=== PATIENT | male | born 1955 | race Caucasian/White ===

== ENCOUNTER → 2016-12-12 | Outpatient (CLI) | payer BC ==
[~2016-12-12] MED LIST: CIPR-255 PO; DICY10CA55 PO; DOXA2TAB PO; GABA1CAP5 PO; LOVA20TA4 PO; MOME200A INH; MONT1TAB3 PO; NSNN50 NAE; OMEP40CA41 PO
--- NOTE | 2016-12-12 13:01 | DIAGNOSTIC IMAGING REPORT ---
TWO VIEW CHEST CLINICAL HISTORY: Cough. FINDINGS: PA and lateral chest radiographs are compared to study dated 02/26/2014. Correlation is made with chest CT dated 04/16/2012. The heart is top normal for projection. The mediastinal contour is within normal limits. The lungs and pleural spaces are clear. There is no pneumothorax. Chronic posttraumatic change is identified in the right upper ribs. IMPRESSION: No active disease in the chest. Electronically signed by: Felix Knight M.D. 12/12/2016 12:59 PM Dictated Date/Time: 12/12/2016 12:58 PM
== END | disposition home or self-care (01) ==
LOC: C.RAD1850 11:23
PROVIDERS: ATTEND Allergy & Immunology Allergy
DX: R05 Cough (principal)

== ENCOUNTER → 2017-01-24 | Day surgery (SDC) | payer BC ==
[2017-01-10 08:21] VITALS: Ht 193 cm; Wt 98.6 kg
[~2017-01-24] VITALS: Ht 193 cm; Wt 98.6 kg
[~2017-01-24] MED LIST changes: +BUPIVACAINE 0.25% 2.5MG/ML PF 10 ML VIAL INFIL ONE; -CIPR-255 PO; +LIDOCAINE HCL 1% MPF 5 ML VIAL ONE
--- NOTE | 2017-01-24 14:22 | History & Physical Bridge - [place] ---
H&P Re-Evaluation Bridge Note: I have examined the patient, reviewed the History & Physical and in the interval since the performance of the History & Physical I have noted the following changes of clinical significance: No changes noted
[2017-01-24 14:45] VITALS: TEMP 37.4
--- NOTE | 2017-01-24 14:51 | Discharge Instructions ---
Discharge Instructions Date of Service Jan 24, 2017. Visit Reason for Visit: Low Back Pain Discharge Discharge Diagnosis / Problem: low back infection Discharge Goals Goal(s): Decrease discomfort, Improve function Medications Stopped Medications Name(s): no blood thinners Activity Recommendations Activity Limitations: resume your previous activity Anesthesia . Post Anesthesia Instructions: If you have had General Anesthesia or IV Sedation: * Do not drive today. * Resume driving when surgeon permits. * Do not make important decisions or sign legal documents today. * Call surgeon for: 1. Temperature elevations greater than 101 degrees F. 2. Uncontrollable pain. 3. Excessive bleeding. 4. Persistent nausea and vomiting. 5. Medication intolerance (nausea, vomiting or rash). * For nausea and vomiting use only clear liquids such as: tea, soda, bouillon until nausea subsides, then gradually increase diet as tolerated. * If you have any concerns or questions, call your surgeon's office. If physician is unavailable and it is an emergency, call 911 or go to the nearest emergency room. . Diet Recommendations Recommended Home Diet: resume previous diet Procedures Procedures Performed: LEFT L5-S1 MEDIAL BRANCH BLOCK Pending Studies Studies pending at discharge: no Medical Emergencies . Who to Call and When: Medical Emergencies: If at any time you feel your situation is an emergency, please call 911 immediately. . Non-Emergent Contact Non-Emergency issues call your: Specialist . . "Provider Documentation" section prepared by Gary Castellon.
[2017-01-24 14:58] VITALS: BP 137/90; PULSE 76; O2SAT 96
--- NOTE | 2017-01-24 15:40 | OPERATIVE REPORT ---
DATE OF OPERATION: 01/24/2017 PREOPERATIVE DIAGNOSES: Left L5-S1 facet arthropathy, history of an L4-L5 diskectomy and laminectomy. POSTOPERATIVE DIAGNOSES: Same. PROCEDURE: Left L5-S1 medial branch block. INDICATIONS: The patient is a 61-year-old white male who presents today with a 3-month history of low back pain. He had a history of a prior disk surgery and laminectomy at L4-L5. He has really localizing pain to the left L5-S1 facet area. His examination was consistent with this and imaging studies also confirmed significant facet arthritis in this area. He presents today for medial branch blocks to confirm that this is indeed causing the pain that he has radiating down into the back and into top of the buttocks. PHYSICAL EXAMINATION: Pleasant male seated comfortably. He has point tenderness to palpation of the left L5-S1 facet area. This is worse with extension, extension rotation. He has normal motor and sensory examination. CONSENT: Verbal and written consent was obtained from the patient. Risks and benefits were reviewed. Risks include but are not limited to infection, abscess and allergic reaction and wishes to proceed. DESCRIPTION OF PROCEDURE: The patient was taken back to the special procedures room of the [facility], where he was maintained in a prone position. Backside was cleansed with Betadine x3 and a dry sterile dressing was applied. Fluoroscope was used to identify the L5 transverse process and the sacral ala both on the left side. The overlying skin was anesthetized with 2.5 mL of lidocaine 1% with a 25-gauge 1.5-inch needle and a 25-gauge 3.5-inch spinal needle was then placed at each site contacting bony target under fluoroscopic guidance. It was then injected with 1 mL of bupivacaine 0.25% first at the L5 transverse process junction and then at the left sacral ala, both injections were done on the left side, well tolerated. DISPOSITION: 1. The patient is taken out into the discharge recovery area where he will be discharged home once discharge criteria have been met. 2. Follow up in the [facility] office in 2-4 weeks. I attest to the content of the Intraoperative Record and any orders documented therein. Any exceptio ns are noted below.
== END | disposition home or self-care (01) ==
LOC: X.SURG 13:22
PROVIDERS: ATTEND Physical Medicine & Rehabilitation
DX: M47.817 Spondylosis without myelopathy or radiculopathy, lumbosacral region (principal); J45.909 Unspecified asthma, uncomplicated; E78.5 Hyperlipidemia, unspecified; I10 Essential (primary) hypertension; K21.9 Gastro-esophageal reflux disease without esophagitis

== ENCOUNTER → 2017-02-15 | Outpatient (CLI) | payer BC ==
[~2017-02-15] MED LIST changes: -BUPIVACAINE 0.25% 2.5MG/ML PF 10 ML VIAL INFIL ONE; -LIDOCAINE HCL 1% MPF 5 ML VIAL ONE; +OPTIRAY 320 IV PRN
--- NOTE | 2017-02-15 08:06 | DIAGNOSTIC IMAGING REPORT ---
ABDOMEN AND PELVIS CT WITH IV AND ORAL CONTRAST CT DOSE: 978.34 mGycm HISTORY: Diverticulosis. Pain. TECHNIQUE: Multiaxial CT images of the abdomen and pelvis were performed following the use of intravenous and oral contrast. COMPARISON STUDY: 03/29/2016 FINDINGS: Several small hepatic cysts unchanged from the prior study. Gallbladder is negative for distention. Spleen is uniform. Pancreas is unremarkable throughout. There kidneys negative for hydronephrosis. Adrenal glands are normal. Abdominal bowel pattern is nonobstructive. There are findings of chronic distal descending and sigmoid colonic diverticulosis. There is no evidence for acute diverticulitis. Bladder is midline. There is no significant abdominal pelvic or inguinal adenopathy. IMPRESSION: 1. Chronic distal descending and sigmoid colonic diverticulosis.. 2. No evidence for acute diverticulitis. 3. Several small stable hepatic cysts. 4. No change in the prior study. Electronically signed by: Vance Brown M.D. 02/15/2017 8:04 AM Dictated Date/Time: 02/15/2017 7:58 AM
== END | disposition home or self-care (01) ==
LOC: C.CTS 06:59
PROVIDERS: ATTEND Internal Medicine Gastroenterology
DX: K57.92 Diverticulitis of intestine, part unspecified, without perforation or abscess without bleeding (principal); K76.89 Other specified diseases of liver

== ENCOUNTER → 2017-03-15 | Day surgery (SDC) | payer BC ==
[~2017-03-15] VITALS: Ht 193 cm; Wt 96.3 kg
[~2017-03-15] MED LIST changes: +BUPIVACAINE 0.25% 2.5MG/ML PF 10 ML VIAL INFIL ONE; +LIDOCAINE HCL 1% MPF 5 ML VIAL ONE; -OPTIRAY 320 IV PRN
[2017-03-15 11:32] VITALS: Ht 193 cm; Wt 96.3 kg
[2017-03-15 12:45] VITALS: TEMP 37.1
--- NOTE | 2017-03-15 12:50 | Discharge Instructions ---
Discharge Instructions Date of Service March 15, 2017. Visit Reason for Visit: Low Back Pain Discharge Discharge Diagnosis / Problem: low back pain Discharge Goals Goal(s): Decrease discomfort, Improve function Activity Recommendations Activity Limitations: resume your previous activity Anesthesia . Post Anesthesia Instructions: If you have had General Anesthesia or IV Sedation: * Do not drive today. * Resume driving when surgeon permits. * Do not make important decisions or sign legal documents today. * Call surgeon for: 1. Temperature elevations greater than 101 degrees F. 2. Uncontrollable pain. 3. Excessive bleeding. 4. Persistent nausea and vomiting. 5. Medication intolerance (nausea, vomiting or rash). * For nausea and vomiting use only clear liquids such as: tea, soda, bouillon until nausea subsides, then gradually increase diet as tolerated. * If you have any concerns or questions, call your surgeon's office. If physician is unavailable and it is an emergency, call 911 or go to the nearest emergency room. . Diet Recommendations Recommended Home Diet: resume previous diet Procedures Procedures Performed: Left L5-S1 Medial Branch Blocks Pending Studies Studies pending at discharge: no Medical Emergencies . Who to Call and When: Medical Emergencies: If at any time you feel your situation is an emergency, please call 911 immediately. . Non-Emergent Contact Non-Emergency issues call your: Specialist . . "Provider Documentation" section prepared by Gary Castellon. .
[2017-03-15 12:59] VITALS: BP 144/89; PULSE 74; O2SAT 95
--- NOTE | 2017-03-15 16:11 | OPERATIVE REPORT ---
DATE OF OPERATION: 03/15/2017 PREOPERATIVE DIAGNOSIS: Left L5-S1 facet arthritis. POSTOPERATIVE DIAGNOSIS: Same. PROCEDURE: Left L5-S1 medial branch block. INDICATIONS: The patient is a 61-year-old white male who had a left L5-S1 branch block that was successful for the exact time of the bupivacaine 8 hours. His pain recurred. He presents today for a second branch block to confirm that indeed the facet is the pain generator of this chronic low back pain for a second medial branch block. PHYSICAL EXAMINATION: Pleasant male seated comfortably. He has a little point tenderness to palpation over the left L5-S1 facet area, worse with extension. He has normal lower motor and sensory exam. CONSENT: Verbal and written consent was obtained from the patient. Risks and benefits were reviewed. Risks include but are not limited to abscess and allergic reaction. The patient wishes to proceed. PROCEDURE: The patient was taken back to the special procedures room of the [facility] where he was maintained in a prone position. Backside was cleansed with Betadine x3 and a dry sterile dressing was applied. Fluoroscope was used to identify the L5 transverse process junction on the left and the left sacral ala. The overlying skin was anesthetized with 2.5 mL of lidocaine 1% at each site. He then underwent placement of a 25 gauge 3.5 inch spinal needle at each site contacting bone. He then underwent injection of bupivacaine 0.25% 1 mL at each site. DISPOSITION: 1. The patient is taken out into the discharge area and will be discharged home once discharge criteria have been met. 2. Follow up in the [facility] office in 2-4 weeks. I attest to the content of the Intraoperative Record and any orders documented therein. Any exceptio ns are noted below.
== END | disposition home or self-care (01) ==
LOC: X.SURG 11:06
PROVIDERS: ATTEND Physical Medicine & Rehabilitation
DX: M47.817 Spondylosis without myelopathy or radiculopathy, lumbosacral region (principal)

== ENCOUNTER → 2017-04-18 | Day surgery (SDC) | payer BC ==
[2017-04-15 07:43] VITALS: Ht 193 cm; Wt 96.3 kg
[~2017-04-18] VITALS: Ht 193 cm; Wt 96.3 kg
[~2017-04-18] MED LIST changes: -BUPIVACAINE 0.25% 2.5MG/ML PF 10 ML VIAL INFIL ONE; +BUPIVACAINE 0.25% 2.5MG/ML PF 10 ML VIAL ONE
[2017-04-18 12:58] VITALS: TEMP 36.4
[2017-04-18 14:16] VITALS: BP 150/82; PULSE 70; O2SAT 95
--- NOTE | 2017-04-18 14:23 | Discharge Instructions ---
Discharge Instructions Date of Service Apr 18, 2017. Visit Reason for Visit: Low Back Pain Discharge Discharge Diagnosis / Problem: low back pain Discharge Goals Goal(s): Decrease discomfort, Improve function Activity Recommendations Activity Limitations: resume your previous activity Anesthesia . Post Anesthesia Instructions: If you have had General Anesthesia or IV Sedation: * Do not drive today. * Resume driving when surgeon permits. * Do not make important decisions or sign legal documents today. * Call surgeon for: 1. Temperature elevations greater than 101 degrees F. 2. Uncontrollable pain. 3. Excessive bleeding. 4. Persistent nausea and vomiting. 5. Medication intolerance (nausea, vomiting or rash). * For nausea and vomiting use only clear liquids such as: tea, soda, bouillon until nausea subsides, then gradually increase diet as tolerated. * If you have any concerns or questions, call your surgeon's office. If physician is unavailable and it is an emergency, call 911 or go to the nearest emergency room. . Diet Recommendations Recommended Home Diet: resume previous diet Procedures Procedures Performed: Left L5-S1 Radio Frequency Denervation Pending Studies Studies pending at discharge: no Medical Emergencies . Who to Call and When: Medical Emergencies: If at any time you feel your situation is an emergency, please call 911 immediately. . Non-Emergent Contact Non-Emergency issues call your: Specialist . . "Provider Documentation" section prepared by Gary Castellon. .
--- NOTE | 2017-04-18 15:33 | OPERATIVE REPORT ---
DATE OF OPERATION: 04/18/2017 PREOPERATIVE DIAGNOSES: Chronic low back pain, left L5-S1 facet arthritis. POSTOPERATIVE DIAGNOSES: Same. PROCEDURE: Left L5-S1 medial branch facet denervation. INDICATIONS: The patient is a 61-year-old white male who underwent medial branch blocks successfully and he presents today for denervation procedure to provide him with longer lasting relief of the pain that he has in his lower left facet region. PHYSICAL EXAMINATION: Pleasant male seated comfortably. He is point tender to palpation of left L5-S1 facet area. This is worse with extension and rotation. He has intact sensation and motor strength distally. Negative seated straight leg raises. CONSENT: Verbal and written consent was obtained from the patient. Risks and benefits were reviewed. Risks include but are not limited to abscess, allergic reaction and denervation. The patient wishes to proceed. DESCRIPTION OF PROCEDURE: The patient was taken back in the special procedures room of the [facility] where he was maintained in a prone position. Backside was cleansed with Betadine x3 and a dry sterile dressing was applied. Fluoroscope was used to identify the L5 transverse process junction in the sacral ala on the left side. Overlying skin was anesthetized with 2.5 mL of lidocaine 1% with a 25 gauge 1.5-inch needle. A 22 gauge 10 cm Vestiage needle was placed and contacted the bony target at each site. He then underwent sensory stimulation that provoked sensory stimulation at 0.2 volts at L5 and 0.1 volts at the sacral ala. Motor stimulation did not provoke any movement below the waist, just localized paraspinal twitching. He underwent anesthetization with 1 mL lidocaine 1% at each site and then this was followed by denervation 80 degrees of 100 seconds x2 at each site and then this was followed by bupivacaine 0.25% 1 mL at each site. The procedure was well tolerated and he will follow in the [facility]. DISPOSITION: 1. The patient is taken out into the discharge recovery area where he will be discharged home once discharge criteria have been met. 2. Follow up in the [facility] office in 4 weeks' time. I attest to the content of the Intraoperative Record and any orders documented therein. Any exception s are noted below.
== END | disposition home or self-care (01) ==
LOC: X.SURG 12:33
PROVIDERS: ATTEND Physical Medicine & Rehabilitation
DX: M47.817 Spondylosis without myelopathy or radiculopathy, lumbosacral region (principal)

== ENCOUNTER → 2017-07-01 | Outpatient (CLI) | payer BC ==
[~2017-07-01] MED LIST changes: -BUPIVACAINE 0.25% 2.5MG/ML PF 10 ML VIAL ONE; -LIDOCAINE HCL 1% MPF 5 ML VIAL ONE
--- NOTE | 2017-07-01 07:59 | DIAGNOSTIC IMAGING REPORT ---
MRI LUMBAR SPINE W/O CONTRAST CLINICAL HISTORY: LEFT LUMBAR RADICULOPATHY TECHNIQUE: Sagittal and axial T1, T2 and STIR images were obtained. COMPARISON STUDY: No previous studies for comparison. OBSERVATIONS: The vertebral bodies and posterior elements appear intact. There is no abnormal bony signal present to suggest a marrow replacement process. L1-2: No disc protrusions or extrusions. No evidence of spinal canal or neural foraminal compromise. L2-3: There are bilateral disc protrusions. There is moderate spinal stenosis. There is no significant foraminal narrowing. L3-4: No disc protrusions or extrusions. No evidence of spinal canal or neural foraminal compromise. L4-5: There is a small left foraminal disc protrusion. There is no significant spinal foraminal stenosis L5-S1: There is a minor circumferential disc bulge. There is minor right-sided foraminal narrowing. The conus medullaris and cauda equina appear normal. IMPRESSION: 1. Small bilateral disc protrusions the L2-3 level with moderate spinal stenosis 2. Small left foraminal disc protrusion at the L4-5 level. 3. Minor right-sided foraminal narrowing at the L5-S1 level. Electronically signed by: Ramiro Chen M.D. 07/01/2017 7:58 AM Dictated Date/Time: 07/01/2017 7:48 AM
== END | disposition home or self-care (01) ==
LOC: C.MRIBC 06:50
PROVIDERS: ATTEND Physical Medicine & Rehabilitation
DX: M54.16 Radiculopathy, lumbar region (principal); M48.06 Spinal stenosis, lumbar region

== ENCOUNTER → 2017-08-01 | Day surgery (SDC) | payer BC ==
[2017-07-23 11:42] VITALS: Ht 193 cm; Wt 93.2 kg
[~2017-08-01] VITALS: Ht 193 cm; Wt 93.2 kg
[~2017-08-01] MED LIST changes: +BUPIVACAINE 0.25% 2.5MG/ML PF 10 ML VIAL ONE; +IOPAMIDOL INJ 61% 15 ML VIAL ONE; +LIDOCAINE HCL 1% MPF 5 ML VIAL ONE; +SODIUM CHLORIDE 0.9% INJ 10 ML VIAL ONE
[2017-08-01 15:03] VITALS: TEMP 37
--- NOTE | 2017-08-01 15:04 | Discharge Instructions ---
Discharge Instructions Date of Service Aug 01, 2017. Visit Reason for Visit: Lumbar Radiculopathy Discharge Discharge Diagnosis / Problem: left leg pain Discharge Goals Goal(s): Decrease discomfort, Improve function Activity Recommendations Activity Limitations: resume your previous activity Anesthesia . Post Anesthesia Instructions: If you have had General Anesthesia or IV Sedation: * Do not drive today. * Resume driving when surgeon permits. * Do not make important decisions or sign legal documents today. * Call surgeon for: 1. Temperature elevations greater than 101 degrees F. 2. Uncontrollable pain. 3. Excessive bleeding. 4. Persistent nausea and vomiting. 5. Medication intolerance (nausea, vomiting or rash). * For nausea and vomiting use only clear liquids such as: tea, soda, bouillon until nausea subsides, then gradually increase diet as tolerated. * If you have any concerns or questions, call your surgeon's office. If physician is unavailable and it is an emergency, call 911 or go to the nearest emergency room. . Diet Recommendations Recommended Home Diet: resume previous diet Procedures Procedures Performed: LEFT TRANSFORAMINAL EPIDURAL STEROID INJECTION Pending Studies Studies pending at discharge: no Medical Emergencies . Who to Call and When: Medical Emergencies: If at any time you feel your situation is an emergency, please call 911 immediately. . Non-Emergent Contact Non-Emergency issues call your: Specialist . . "Provider Documentation" section prepared by Gary Castellon. .
[2017-08-01 15:10] VITALS: BP 132/86; PULSE 65; O2SAT 98
--- NOTE | 2017-08-01 15:21 | OPERATIVE REPORT ---
DATE OF OPERATION: 08/01/2017 PREOPERATIVE DIAGNOSES: Foraminal stenosis with a left L4 radiculopathy, history of a prior lumbar surgery. POSTOPERATIVE DIAGNOSIS: Same. PROCEDURE: Left transforaminal epidural steroid injection with a block of L4 on the left. INDICATIONS: The patient is a 62-year-old white male who is describing L4 dermatomal pain down the left leg. MRI indicates multifactorial foraminal stenosis at L4 secondary to disk desiccation and facet hypertrophy. He is to undergo an epidural injection to provide him with relief of the left L4 radiculopathy. PHYSICAL EXAMINATION: Pleasant male seated comfortably. He has no focal weakness. Negative seated straight leg raises and intact sensation. CONSENT: Verbal and written consent was obtained from the patient. Risks and benefits were reviewed. Risks include but are not limited to epidural abscess, epidural hematoma, allergic reaction, dural puncture. The patient wishes to proceed. PROCEDURE: The patient was taken back to the special procedures room of the [facility] where he was maintained in a prone position. Backside was cleansed with Betadine x3 and a dry sterile dressing was applied. Fluoroscope was used to identify the L4-L5 pedicle area and the inferior to the pedicle was marked as a target. He was then moved in an oblique view. The overlying skin was anesthetized with 5 mL of lidocaine 1% with a 25 gauge 1.5-inch needle and a 25 gauge 3-1/2 inch needle was then directed under fluoroscopic guidance first in an oblique view under the pedicle and then moved into an AP view. He then underwent injection of Isovue 300 contrast which demonstrated outlining of the nerve root L4. He then underwent injection after negative aspiration of 40 mg Depo-Medrol and 1 mL of bupivacaine 0.25%. Injection was well tolerated; he had no pain in the legs following the injection. DISPOSITION: 1. The patient is taken out into the discharge recovery area where he will be discharged home once discharge criteria have been met. 2. Follow up in the [facility] office in 2-4 weeks. I attest to the content of the Intraoperative Record and any orders documented therein. Any exception s are noted below.
== END | disposition home or self-care (01) ==
LOC: X.SURG 13:34
PROVIDERS: ATTEND Physical Medicine & Rehabilitation
DX: M99.73 Connective tissue and disc stenosis of intervertebral foramina of lumbar region (principal)

== ENCOUNTER → 2017-12-25 | Outpatient (CLI) | payer OTHER ==
[~2017-12-25] MED LIST changes: -BUPIVACAINE 0.25% 2.5MG/ML PF 10 ML VIAL ONE; +GABA-1220 PO; -GABA1CAP5 PO; -IOPAMIDOL INJ 61% 15 ML VIAL ONE; -LIDOCAINE HCL 1% MPF 5 ML VIAL ONE; -SODIUM CHLORIDE 0.9% INJ 10 ML VIAL ONE
[2017-12-25 10:11] LABS: ALBUMIN 3.5 gm/dl (3.4-5.0); ALT/SGPT 53 U/L (12-78); AST/SGOT 26 U/L (15-37); BLOOD UREA NITROGEN 20 mg/dl (7-18); CALCIUM 8.4 mg/dl (8.5-10.1); CARBON DIOXIDE 29 mmol/L (21-32); CHOLESTEROL 144 mg/dl (0-200); CREATININE 1.01 mg/dl (0.60-1.40); GLUCOSE 105 mg/dl (70-99); POTASSIUM 3.9 mmol/L (3.5-5.1); SODIUM 141 mmol/L (136-145)
[2017-12-25 10:15] LABS: ALKALINE PHOSPHATASE 64 U/L (45-117); LDL CHOLESTEROL CALCULATED 81 mg/dl; TOTAL PROTEIN 6.6 gm/dl (6.4-8.2)
== END | disposition home or self-care (01) ==
LOC: C.LAB1850 08:40
PROVIDERS: ATTEND Nurse Practitioner Family
DX: J45.909 Unspecified asthma, uncomplicated (principal); E78.5 Hyperlipidemia, unspecified; I10 Essential (primary) hypertension; K58.9 Irritable bowel syndrome, unspecified; Z11.59 Encounter for screening for other viral diseases; Z12.5 Encounter for screening for malignant neoplasm of prostate

== ENCOUNTER → 2018-01-22 | Outpatient (CLI) | payer OTHER ==
[~2018-01-22] MED LIST changes: +OPTIRAY 320 IV PRN
--- NOTE | 2018-01-22 08:03 | DIAGNOSTIC IMAGING REPORT ---
CT ABD/PELVIS IV AND ORAL CONT CLINICAL HISTORY: Left lower quadrant abdominal pain COMPARISON STUDY: 02/15/2017 TECHNIQUE: Following the IV administration of 94 mL of Optiray-320, CT scan of the abdomen and pelvis was performed from the lung bases to the proximal femurs. Images are reviewed in the axial, sagittal, and coronal planes. IV contrast was administered without complication. A dose lowering technique was utilized adhering to the principles of ALARA. CT DOSE: 627.40 mGy.cm FINDINGS: Lower chest: The heart is normal in size and configuration, without pericardial effusion. The lung bases and pleural spaces are clear. Liver: There are stable subcentimeter hepatic hypodensities, likely representing cysts. Gallbladder: Unremarkable. Spleen: Normal in size and attenuation. Pancreas: Unremarkable. Adrenal glands: Unremarkable. Kidneys: There is an 8mm right renal cyst. No solid renal masses are visualized there is no hydronephrosis Bowel: There are no transition zone to indicate bowel obstruction. There is no evidence of acute appendicitis. There is no evidence of acute diverticulitis. There are scattered colonic diverticula present. Peritoneum: There is no intraperitoneal free air or abdominal ascites. Vasculature: The abdominal aorta is normal in course and caliber. Adenopathy: None. Pelvic viscera: The bladder, and pelvic viscera are unremarkable. Skeletal structures: No destructive osseous lesions are seen. IMPRESSION: 1. No acute intra-abdominal or pelvic findings 2. No evidence of bowel obstruction. No evidence of free air 3. Diverticulosis. No evidence of acute diverticulitis 4. No evidence of acute appendicitis Electronically signed by: Ramiro Chen M.D. 01/22/2018 8:02 AM Dictated Date/Time: 01/22/2018 7:55 AM
== END | disposition home or self-care (01) ==
LOC: C.CTS 07:28
PROVIDERS: ATTEND Internal Medicine Gastroenterology
DX: R10.32 Left lower quadrant pain (principal); K57.90 Diverticulosis of intestine, part unspecified, without perforation or abscess without bleeding